=== PATIENT | female | born 1975 | race African-American/Black ===

== ENCOUNTER 2018-04-03 21:41 | Emergency (ER) | payer OTHER ==
[~2018-04-03] VITALS: Ht 167.6 cm; Wt 140.6 kg
[2018-04-03 22:05] LABS: ABSOLUTE NEUTROPHILS 5.3 thou/uL (1.4-8.2); BASOPHILS 0.2 % (0.0-2.0); HEMATOCRIT 27.3 % (37.0-47.0); HEMOGLOBIN 8.1 gm/dL (12.0-15.0); MCH 17.3 pg (26.0-34.0); MCHC 29.9 g/dL (28.0-37.0); MCV 57.8 fL (80.0-100.0); MONOCYTES 6.1 % (1.0-8.0); PLATELET COUNT 428 thou/uL (150-400); POLYS 54.7 % (36.0-66.0); RBC 4.71 mil/uL (4.20-5.00); RDW 21.2 % (10.5-14.5); WBC 9.7 thou/uL (4.0-11.0)
[2018-04-03 22:08] LABS: ANION GAP 11 mmol/L (7-16); BUN 12 mg/dL (7-18); CALCIUM 8.6 mg/dL (8.5-10.1); CHLORIDE 102 mmol/L (98-107); CO2 26 mmol/L (21-32); CREATININE 0.9 mg/dL (0.6-1.0); GLUCOSE 117 mg/dL (74-106); POTASSIUM 3.3 mmol/L (3.5-5.1); SODIUM 139 mmol/L (136-145)
[2018-04-03 22:17] LABS: SGOT 23 U/L (15-37); SGPT 22 U/L (30-65); TOTAL BILIRUBIN 0.2 mg/dL (<0.1-1.0); TOTAL PROTEIN 8.4 g/dL (6.4-8.2); TROPONIN-I <0.06 ng/mL (<0.06)
[2018-04-03] MEDS ORDERED: PROTONIX40 M1 PO (23:56)
[2018-04-03] MEDS ORDERED: ZOFRAN ODT4 MG PO (23:56)
[2018-04-04] MEDS ORDERED: NORCO 5-325 TA1 EACH PO (00:22)
[2018-04-04 00:28] VITALS: BP 153/81
--- NOTE | 2018-04-04 08:11 | EKG ---
[place] [address] [employer] [facility] [place] [address] ELECTROCARDIOGRAM REPORT Name: MARY DUDLEY [id number] Admission: 04/03/18 Attend Phys: Discharge: 04/04/18 Date of : 79 Report #: [id number] THIS REPORT FOR: //name// [facility] ED Test Date: 2018-04-03 Test Time: 21:53:52 Pat Name: MARY DUDLEY Department: Room: Gender: F Food Service Team Member: na : 1975 Requested By: Bin Andrade Order Number: [id number] MD: Michael Verdin Measurements Intervals [place] Rate: 98 P: 48 IN: 128 QRS: 27 QRSD: 92 T: 8 QT: 333 QTc: 426 Interpretive Statements Sinus rhythm Nonspecific ST segment abnormality Compared to ECG 05/30/2000 10:36:07 ST (T wave) deviation now present Electronically Signed On 04-04-2018 8:11:39 FISCAL SPECIALIST by Michael Verdin [email or web address] <ELECTRONICALLY SIGNED> By: Michael Verdin MD, [facility] 04/04/18810 52 52 Michael Verdin MD, FAC /EPI
== END 2018-04-04 00:28 | disposition home or self-care (01) ==
LOC: ER 21:41
PROVIDERS: Emergency Medicine
DX: R07.89 Other chest pain (principal); R42 Dizziness and giddiness; R11.0 Nausea; R06.02 Shortness of breath; R05 Cough